=== PATIENT | male | born 1970 | race African-American/Black ===

== ENCOUNTER 2017-04-04 13:05 | Emergency (ER) | payer MEDICAID ==
[2017-04-04 13:28] VITALS: BP 122/67
[2017-04-04] MEDS ORDERED: ONDANSETRON 4 MG TAB.RAPDIS PO ONE (13:56)
[2017-04-04] MEDS ORDERED: HYDROCODONE/ACETAMINOPHEN 5-325 MG TABLET PO ONE (13:56)
[2017-04-04 14:33] LABS: ABSOLUTE EOSINOPHILS # (AUTO) 0.2 10^3/uL (0.0-0.6); ABSOLUTE LYMPHOCYTES (AUTO) 3.1 10^3/uL (0.5-4.7); ABSOLUTE MONOCYTES (AUTO) 0.9 10^3/uL (0.1-1.4); ABSOLUTE NEUT (AUTO) 4.8 10^3/uL (1.7-8.2); BASOPHILS % (AUTO) 0.4 % (0-2); HEMATOCRIT 49.7 % (37.9-51.0); HEMOGLOBIN 17.2 g/dL (13.5-17.0); HGB HCT DIFFERENCE 1.9; LYMPHOCYTES % (AUTO) 34.4 % (13-45); MEAN CORPUSCULAR HEMOGLOBIN 33.6 pg (27.0-33.4); MEAN CORPUSCULAR HGB CONC 34.5 g/dL (32.0-36.0); MEAN CORPUSCULAR VOLUME 97 fl (80-97); MONOCYTES % (AUTO) 9.7 % (3-13); RED BLOOD COUNT 5.11 10^6/uL (4.35-5.55); RED CELL DISTRIBUTION WIDTH 13.6 % (11.5-14.0); SEGMENTED NEUTROPHILS % (AUTO) 53.5 % (42-78); WHITE BLOOD COUNT 9.1 10^3/uL (4.0-10.5)
[2017-04-04 14:35] LABS: APPEARANCE,URINE CLEAR; BILIRUBIN,URINE NEGATIVE (NEGATIVE); GLUCOSE, URINE NEGATIVE (NEGATIVE); KETONES,URINE NEGATIVE (NEGATIVE); LEUKOCYTE ESTERASE,URINE NEGATIVE (NEGATIVE); NITRITE,URINE NEGATIVE (NEGATIVE); PROTEIN,URINE NEGATIVE (NEGATIVE); URINE SPECIFIC GRAVITY 1.015
[2017-04-04 14:50] LABS: ALANINE AMINOTRANSFERASE 34 U/L (21-72); ALBUMIN 4.3 g/dL (3.5-5.0); ALKALINE PHOSPHATASE 53 U/L (38-126); ANION GAP 11 (5-19); ASPARTATE AMINO TRANSFERASE 24 U/L (17-59); BILIRUBIN,DIRECT 0.4 mg/dL (0.0-0.4); BILIRUBIN,TOTAL 0.6 mg/dL (0.2-1.3); BLOOD UREA NITROGEN 19 mg/dL (7-20); CALCIUM 9.6 mg/dL (8.4-10.2); CARBON DIOXIDE 25 mmol/L (22-30); CHLORIDE 107 mmol/L (98-107); CREATININE RESULT 1.07 mg/dL (0.52-1.25); GLUCOSE 87 mg/dL (75-110); POTASSIUM 4.5 mmol/L (3.6-5.0); SODIUM 142.7 mmol/L (137-145); TOTAL PROTEIN 7.1 g/dL (6.3-8.2)
--- NOTE | 2017-04-04 16:05 | ER Document Report ---
ED General - General Chief Complaint: Back Pain Stated Complaint: BACK AND NECK PAIN Time Seen by Provider: 04/04/17 13:56 Mode of Arrival: Ambulatory Information source: Patient Notes: Patient states he was helping his neighbor chop some wood when he had the onset of pain in his lower back. He states it radiates down his left leg. It is constant and severe. It is worse with movement and better with rest. He denies any other significant injuries. He states he has had some chronic pain now for over 1 year but the only new pain is the low back pain that radiates down the left leg. He denies any problems with urination or bowel movements. No change of sensation in the perineal or rectal areas. TRAVEL OUTSIDE OF THE [place] IN LAST 30 DAYS: No - Related Data Allergies/Adverse Reactions: bupropion [From Wellbutrin] Allergy (Mild, Verified 04/04/17 14:03) divalproex sodium [From Depakote] Allergy (Verified 04/04/17 13:28) Past Medical History - General Information source: Patient - Social History Smoking Status: Current Every Day Smoker Chew tobacco use (# tins/day): No Frequency of alcohol use: Occasional Drug Abuse: Marijuana Family History: Reviewed & Not Pertinent Patient has suicidal ideation: No Patient has homicidal ideation: No Renal/ Medical History: Denies: Hx Peritoneal Dialysis Past Surgical History: Reports: Hx Oral Surgery Review of Systems - Review of Systems Constitutional: denies: Chills, Fever Cardiovascular: denies: Chest pain, Palpitations Respiratory: denies: Cough, Short of breath -: Yes All other systems reviewed and negative Physical Exam - Vital signs Vitals: Temp Pulse Resp BP Pulse Ox 98.6 F 77 16 122/67 99 04/04/17 13:25 04/04/17 13:25 04/04/17 13:25 04/04/17 13:25 04/04/17 13:25 Interpretation: Hypertensive - General General appearance: Appears well, Alert In distress: None - HEENT Head: Normocephalic, Atraumatic Eyes: Normal Pupils: PERRL - Respiratory Respiratory status: No respiratory distress Chest status: Nontender Breath sounds: Normal Chest palpation: Normal - Cardiovascular Rhythm: Regular Heart sounds: Normal auscultation Murmur: No - Abdominal Inspection: Normal Distension: No distension Bowel sounds: Normal Tenderness: Nontender Organomegaly: No organomegaly - Back Back: Normal, Tender - Patient is diffusely tender about the lower lumbar spine. Inspection of the area is unremarkable. - Extremities General upper extremity: Normal inspection, Nontender, Normal color, Normal ROM , Normal temperature General lower extremity: Normal inspection, Nontender, Normal color, Normal ROM , Normal temperature, Normal weight bearing. No: Yossi's sign - Neurological Neuro grossly intact: Yes Cognition: Normal Orientation: AAOx4 [place] Coma Scale Eye Opening: Spontaneous [place] Coma Scale Verbal: Oriented P[place] Coma Scale Motor: Obeys Commands Ye[place] Coma Scale Total: 15 Speech: Normal Motor strength normal: LUE, RUE, LLE, RLE Sensory: Normal - Psychological Associated symptoms: Normal affect, Normal mood - Skin Skin Temperature: Warm Skin Moisture: Dry Skin Color: Normal Course - Vital Signs Vital signs: Temp Pulse Resp BP Pulse Ox 98.6 F 77 16 122/67 99 04/04/17 13:25 04/04/17 13:25 04/04/17 13:25 04/04/17 13:25 04/04/17 13:25 - Laboratory Result Diagrams: 04/04/17 14:15 04/04/17 14:15 Laboratory results interpreted by me: 04/04/17 04/04/17 14:15 14:15 Hgb 17.2 H MCH 33.6 H Urine Urobilinogen 2.0 H - Diagnostic Test Radiology reviewed: Image reviewed, Reports reviewed Radiology results interpreted by me: 04/04/17 16:02 Patient has no evidence of fracture dislocation on lumbar spine films. Discharge - Discharge Clinical Impression: Sciatica of left side Condition: Stable Disposition: HOME, SELF-CARE Instructions: Low Back Pain ([facility]) Additional Instructions: Your blood pressure is mildly elevated. Please have this rechecked within 1 week by your doctor. Prescriptions: Hydrocodone/Acetaminophen [Eyota 5-325 mg Tablet] 1 tab PO Q6 PRN #10 tablet PRN Reason: Forms: Elevated Blood Pressure Referrals: WENDY ARMSTRONG MD [COMMUNITY BASED STAFF] - Follow up in 1 week
--- NOTE | 2017-04-04 16:41 | RADIOLOGY REPORT (SQ) ---
EXAM DESCRIPTION: L SPINE 2 VIEWS COMPLETED DATE/TIME: 04/04/2017 2:33 pm REASON FOR STUDY: pain COMPARISON: None. NUMBER OF VIEWS: Two views. TECHNIQUE: AP and lateral radiographic images acquired of the lumbar spine. LIMITATIONS: None. FINDINGS: MINERALIZATION: Normal. SEGMENTATION: Normal. No transitional anatomy. ALIGNMENT: Normal. VERTEBRAE: Maintained height. No fracture or worrisome bone lesion. DISCS: Disc space loss of height at l5-s1 with vacuum phenomenon and vertebral body endplate sclerosi s. POSTERIOR ELEMENTS: Pedicles and facets are intact. No pars defect or posterior arch defects. Facet joint space narrowing and sclerosis at L5-S1. HARDWARE: None in the spine. PARASPINAL SOFT TISSUES: Normal. PELVIS: Intact as visualized. No fractures or worrisome bone lesions. Left SI joint sclerosis. OTHER: No other significant finding. IMPRESSION: Degenerative disc changes and facet arthropathy at L5-S1. No acute fracture or malalignment TECHNICAL DOCUMENTATION: JOB ID: [id number] [employer]- All Rights Reserved
== END 2017-04-04 16:27 | disposition home or self-care (01) ==
LOC: ER 13:05
DX: M54.32 Sciatica, left side (principal); M54.2 Cervicalgia; M79.605 Pain in left leg; F17.200 Nicotine dependence, unspecified, uncomplicated
CPT/HCPCS: 99283; 36415; 85025; 80053; 81001; 72100; S0119

== ENCOUNTER 2018-06-28 06:34 | Day surgery (SDC) | payer MEDICAID ==
--- NOTE | 2018-06-27 13:11 | EKG REPORT ---
SEVERITY:- NORMAL ECG - SINUS RHYTHM ST ELEV, PROBABLE NORMAL EARLY REPOL PATTERN : Confirmed by: Arnulfo Cruz MD 27-Jun-2018 13:10:11
[~2018-06-28 06:34] MED LIST: CEFAZOLIN 1 GM/D5W RTU 1 GM/50 ML RTUPB IV PRN
[2018-06-28] MEDS ORDERED: MIDAZOLAM 2 MG/2 ML INJ ONE (06:42)
[2018-06-28] MEDS ORDERED: LIDOCAINE 2% INJ-PF (20 MG/ML) 10 ML AMPUL ONE (06:42)
[2018-06-28] MEDS ORDERED: FENTANYL CITRATE INJ/PF 100 MCG/2 ML AMPUL ONE (06:42)
[2018-06-28] MEDS ORDERED: KETOROLAC TROMETHAMINE 60 MG/2 ML SDV ONE (06:42)
[2018-06-28] MEDS ORDERED: BUPIVACAINE HCL 0.5 % INJ/PF 30 ML SDV ONE ×2 (06:43→07:21)
[2018-06-28] MEDS ORDERED: PROPOFOL INJ 200 MG/20 ML VIAL IV ONE ×2 (06:43→08:04)
[2018-06-28] MEDS ORDERED: LIDOCAINE 2% INJ (20 MG/ML) 20 ML MDV ONE ×2 (06:43→07:21)
[2018-06-28] MEDS ORDERED: DIPHENHYDRAMINE HCL 50 MG/ML VIAL ONE (06:44)
[2018-06-28] MEDS: BACITRACIN INJ 50,000 UNIT VIAL ONE ×2 (09:06)
[2018-06-28] MEDS: POLYMYXIN B SULFATE INJ 500000 UNIT VIAL ONE ×2 (09:06)
[2018-06-28] MEDS: NORMAL SALINE INJ/PF 0.9% 10 ML SDV ONE ×2 (09:06)
[2018-06-28] MEDS: BUPIVACAINE INJ/PF LIPOSOME/PF 266 MG/20 ML SDV ONE ×2 (09:26)
--- NOTE | 2018-06-28 10:42 | SURGICARE OPERATIVE REPORT E ---
[facility] Operative Report NAME: SAUL HODGES AGE: 48Y DATE OF SURGERY: 06/28/2018 ROOM: PREOPERATIVE DIAGNOSIS: Hallux abductovalgus, right foot. POSTOPERATIVE DIAGNOSIS: Hallux abductovalgus, right foot. SURGICAL PROCEDURE: Correction of bunion by Tu osteotomy with internal fixation, right foot. SURGEON: GREG SANTO DPM SCREEN PRINTING PASTER: Leo Coyle DPM PROCEDURE: Following the induction of IV regional local anesthesia, the right foot and ankle were prepped and draped in the usual sterile manner. A pneumatic tourniquet was placed around the right ankle and inflated to 250 mmHg after exsanguination of the limb via Esmarch bandage. The following surgical procedure was then performed: Correction of bunion by Tu osteotomy with internal fixation, right foot. Attention was directed to the dorsal aspect of the first metatarsophalangeal joint of the right foot where an approximately 6 cm dorsolinear incision was made. The incision was deepened via sharp dissection. All bleeders were clamped and bovied as necessary for the purposes of hemostasis. A capsule incision was made in the same manner as the original skin incision and was made medial to the extensor hallucis longus tendon. The capsule was then reflected medially and laterally from the bone. Attention was directed into the first interspace, where utilizing blunt dissection the transverse adductor tendon was identified and was sharply incised. Attention was directed back to the medial aspect of the first metatarsal head where utilizing a [place] sagittal saw the hypertrophied medial eminence was osteotomized parallel to the long axis of the bone and removed en toto from the wound. Attention was directed to the proximal phalanx where a distal Tu osteotomy was performed with the apex being lateral and the base being medial, and an approximately 2 mm wedge of bone was removed utilizing a [place] sagittal saw. The osteotomy was then tethered closed until it closed down on itself. The osteotomy was then temporarily fixated with a 0.86 guidewire. An x-ray was taken to make sure that the osteotomy was closed, that we had proper correction, and that the guidewire was in a good position. A reamer measure was then threaded down the guidewire and a hole was reamed to accept the head of the screw. It was noted that a 20 x 2.3 mm cannulated screw would be needed. The distal aspect of the osteotomy was then overdrilled utilizing a 1.7 drill bit. The screw was then threaded down the guidewire, and it was tightened down until the osteotomy was closed and stably fixated. The guidewire was then removed. Another x-ray was taken, and it was noted that there was proper correction in the interphalangeal joint of the hallux and that the fifth metatarsophalangeal joint was in an anatomically correct position. Attention was directed to the plantar aspect of the first metatarsal head where it was noted that the fibular sesamoid appeared to be attached to the plantar aspect of the first metatarsal head. This was freed from the attachment using a combination of McGlamry elevator and medializing McGlamry elevator. There was redundant bone on the dorsal aspect of both the first metatarsal head and the base of the proximal phalanx, and this was removed utilizing a rongeur. The medial and dorsal aspects of the first metatarsal head were then rasped smooth utilizing a Stublisher crosscut rasp. Attention was directed to the medial condyle of the base of the proximal phalanx where utilizing a Stublisher sagittal saw this enlarged medial condyle was removed parallel to the long axis of the bone utilizing a Stublisher sagittal saw. This site was also rasped smooth utilizing a Stublisher crosscut rasp. The area was then flushed with copious amounts of antibacterial saline solution. Bone wax was then applied to all of the freshly cut bone surfaces. The capsule was then coaptated and maintained utilizing simple interrupted sutures of 3-0 Vicryl. The extensor hallucis longus tendon was then tacked medially utilizing simple interrupted sutures of 3-0 Vicryl. The subcutaneous tissue was coaptated and maintained utilizing simple interrupted sutures of 4-0 Vicryl. Twenty mL of Exparel were then injected subcutaneously along the length of the incision. The skin was then coaptated and maintained utilizing horizontal mattress sutures of 5-0 nylon. A dry sterile dressing was then applied consisting of Bal silk, 4 x 4s, Conform, Kerlix, and Coban. The pneumatic tourniquet was released. It was noted that all digits were warm and viable, and the patient was transferred to the recovery room. DICTATING PHYSICIAN: GREG SANTO D.P.M. [id number] PHY#: [id number] ID: [id number] JOB#: [id number] ACCT: [id number] cc:GREG SANTO DPM >
--- NOTE | 2018-06-28 11:06 | SURGICARE DISCHARGE SUMMARY E ---
[facility] Discharge Summary NAME: SAUL HODGES AGE: 48Y ADMITTED: 06/28/2018 DISCHARGED: 06/28/2018 PREOPERATIVE DIAGNOSIS: Hallux abductovalgus, right foot. SURGICAL PROCEDURE: Correction bunion by Tu osteotomy with internal fixation right foot. POSTOPERATIVE DIAGNOSIS: Hallux abductovalgus, right foot. SURGEON: Greg Crowley DPM SENIOR CYTOGENETIC TECHNOLOGIST: Leo Coyle DPM HOSPITAL COURSE: The patient was admitted to [facility] with a chief complaint of a painful bunion and big toe. He underwent conservative therapy with no change in his symptoms and the patient desired to have this problem surgically corrected. He underwent the above surgical procedure without any complication and was transferred to the recovery room. He was discharged with a surgical shoe and ice pack. DISCHARGE INSTRUCTIONS: Postoperative instructions included limited weightbearing on the operative foot and postoperative prescriptions for Percocet 5/325 mg, #30, Phenergan 25 mg, #15, and cephalexin 500 mg, #4. He was given a followup appointment in the doctor's office in 1 week, and the patient was discharged from [facility]. DICTATING PHYSICIAN: GREG CROWLEY D.P.M. [id number] PHY#: [id number] ID: [id number] JOB#: [id number] ACCT: [id number] cc:GREG CROWLEY DPM >
--- NOTE | 2018-06-28 13:40 | RADIOLOGY REPORT (SQ) ---
EXAM DESCRIPTION: NO CHG FLUORO; FOOT RIGHT 2 VIEWS COMPLETED DATE/TIME: 06/28/2018 1:23 pm REASON FOR STUDY: BUNIONECTOMY RT FOOT - ASSISTED WITH FLUORO; BUNIONECTOMY RT FT- ASSISTED WITH FLU KYLE M20.11 HALLUX VALGUS (ACQUIRED), RIGHT FOOT COMPARISON: None. FLUOROSCOPY TIME: 10 seconds 2 images saved to PACS. TECHNIQUE: Intra-operative images acquired during surgical procedure to evaluate progress. NUMBER OF IMAGES: 2 LIMITATIONS: None. FINDINGS: 2 images from bunionectomy and orthopedic screw placement in the proximal 1st phalanx. IMPRESSION: IMAGE(S) OBTAINED DURING PROCEDURE. COMMENT: Quality ID [id number]: Final reports for procedures using fluoroscopy that document radiation exp osure indices, or exposure time and number of fluorographic images (if radiation exposure indices are not available) Please consult full operative report of the attending physician for description of the procedure. TECHNICAL DOCUMENTATION: JOB ID: [id number] [employer]- All Rights Reserved Reading location - IP/workstation name: [email or web address]
--- NOTE | 2018-06-28 13:40 | RADIOLOGY REPORT (SQ) ---
EXAM DESCRIPTION: NO CHG FLUORO; FOOT RIGHT 2 VIEWS COMPLETED DATE/TIME: 06/28/2018 1:23 pm REASON FOR STUDY: BUNIONECTOMY RT FOOT - ASSISTED WITH FLUORO; BUNIONECTOMY RT FT- ASSISTED WITH FLU KYLE M20.11 HALLUX VALGUS (ACQUIRED), RIGHT FOOT COMPARISON: None. FLUOROSCOPY TIME: 10 seconds 2 images saved to PACS. TECHNIQUE: Intra-operative images acquired during surgical procedure to evaluate progress. NUMBER OF IMAGES: 2 LIMITATIONS: None. FINDINGS: 2 images from bunionectomy and orthopedic screw placement in the proximal 1st phalanx. IMPRESSION: IMAGE(S) OBTAINED DURING PROCEDURE. COMMENT: Quality ID [id number]: Final reports for procedures using fluoroscopy that document radiation exp osure indices, or exposure time and number of fluorographic images (if radiation exposure indices are not available) Please consult full operative report of the attending physician for description of the procedure. TECHNICAL DOCUMENTATION: JOB ID: [id number]- All Rights Reserved Reading location - IP/workstation name: [email or web address]
== END 2018-06-28 10:53 | disposition home or self-care (01) ==
LOC: SC 06:34
PROVIDERS: ATTEND Podiatrist Foot Surgery
DX: M20.11 Hallux valgus (acquired), right foot (principal); Z79.899 Other long term (current) drug therapy; F17.210 Nicotine dependence, cigarettes, uncomplicated
CPT/HCPCS: 28298; 93005; 93010; 73620; C1769; C1713; J2250; J3490 ×6; J0690; J1200; J1885; J3010; J2704; C9290; 01480

== ENCOUNTER 2019-06-26 10:59 | Emergency (ER) | payer SELFPAY ==
--- NOTE | 2019-06-26 11:38 | EKG REPORT ---
SEVERITY:- NORMAL ECG - SINUS RHYTHM ST ELEV, PROBABLE NORMAL EARLY REPOL PATTERN : Confirmed by: Amirah Garcia 26-Jun-2019 11:37:12
[2019-06-26 11:52] LABS: ABSOLUTE EOSINOPHILS # (AUTO) 0.1 10^3/uL (0.0-0.6); ABSOLUTE LYMPHOCYTES (AUTO) 2.7 10^3/uL (0.5-4.7); ABSOLUTE MONOCYTES (AUTO) 1.2 10^3/uL (0.1-1.4); ABSOLUTE NEUT (AUTO) 2.7 10^3/uL (1.7-8.2); BASOPHILS % (AUTO) 0.4 % (0-2); EOSINOPHILS % (AUTO) 2.1 % (0-6); HEMATOCRIT 48.6 % (37.9-51.0); HEMOGLOBIN 16.7 g/dL (13.5-17.0); LYMPHOCYTES % (AUTO) 39.3 % (13-45); MEAN CORPUSCULAR HEMOGLOBIN 33.6 pg (27.0-33.4); MEAN CORPUSCULAR HGB CONC 34.4 g/dL (32.0-36.0); MEAN CORPUSCULAR VOLUME 97 fl (80-97); MONOCYTES % (AUTO) 17.6 % (3-13); PLATELET COUNT 200 10^3/uL (150-450); RED BLOOD COUNT 4.98 10^6/uL (4.35-5.55); RED CELL DISTRIBUTION WIDTH 13.7 % (11.5-14.0); SEGMENTED NEUTROPHILS % (AUTO) 40.6 % (42-78); TOTAL CELLS COUNTED % (AUTO) 100 %; WHITE BLOOD COUNT 6.8 10^3/uL (4.0-10.5)
[2019-06-26 12:10] LABS: ALBUMIN 4.4 g/dL (3.5-5.0); ALKALINE PHOSPHATASE 56 U/L (38-126); ANION GAP 5 (5-19); ASPARTATE AMINO TRANSFERASE 67 U/L (17-59); BILIRUBIN,TOTAL 1.3 mg/dL (0.2-1.3); BLOOD UREA NITROGEN 14 mg/dL (7-20); CALCIUM 9.5 mg/dL (8.4-10.2); CARBON DIOXIDE 28 mmol/L (22-30); CHLORIDE 105 mmol/L (98-107); CREATINE KINASE 1493 U/L (55-170); GLUCOSE 94 mg/dL (75-110); POTASSIUM 4.6 mmol/L (3.6-5.0); TOTAL PROTEIN 7.5 g/dL (6.3-8.2)
--- NOTE | 2019-06-26 12:13 | RADIOLOGY REPORT (SQ) ---
EXAM DESCRIPTION: CHEST SINGLE VIEW COMPLETED DATE/TIME: 06/26/2019 11:45 am REASON FOR STUDY: bed 11 cp COMPARISON: None. EXAM PARAMETERS: NUMBER OF VIEWS: One view. TECHNIQUE: Single frontal radiographic view of the chest acquired. RADIATION DOSE: NA LIMITATIONS: None. FINDINGS: LUNGS AND PLEURA: No opacities, masses or pneumothorax. No pleural effusion. MEDIASTINUM AND HILAR STRUCTURES: No masses. Contour normal. HEART AND VASCULAR STRUCTURES: Heart normal in size. Normal vasculature. BONES: No acute findings. HARDWARE: None in the chest. OTHER: No other significant finding. IMPRESSION: NO ACUTE RADIOGRAPHIC FINDING IN THE CHEST. TECHNICAL DOCUMENTATION: JOB ID: [id number] [employer]- All Rights Reserved Reading location - IP/workstation name: [email or web address]
[2019-06-26 12:25] LABS: CREATINE KINASE MB 5.34 ng/mL (<4.55)
[2019-06-26 12:27] LABS: TROPONIN I < 0.012 ng/mL
--- NOTE | 2019-06-26 13:25 | ER Document Report ---
ED Cardiac - General Chief Complaint: Chest Pain Stated Complaint: CHEST PAIN/SHORTNESS OF BREATH/BLOOD PRESSURE Time Seen by Provider: 06/26/19 12:30 Mode of Arrival: Ambulatory Information source: Patient TRAVEL OUTSIDE OF THE [place] IN LAST 30 DAYS: No - HPI Notes: Patient presents complaint of chest pain. He states he has had this chest pain for approximately 5 days. He states it is been intermittent. Nothing makes it better or worse. It does radiate across his chest. It is a sharp and pressure sensation. He also states he has had nausea but no vomiting. He has had some shortness of breath and sweating as well. He states he has never had any previous coronary artery disease. He did have a negative stress test a little over 1 year ago he states. 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 He also states he has some chronic pericarditis. He states that he has had some generalized malaise and weakness as well over the last week. - Related Data Allergies/Adverse Reactions: bupropion [From Wellbutrin] Allergy (Severe, Verified 06/26/18 12:20) Hallucinations divalproex sodium [From Depakote] Allergy (Severe, Verified 06/26/18 12:20) rhabdomyolsis bee stings Allergy (Severe, Uncoded 06/26/18 12:20) Anaphylaxis Past Medical History - General Information source: Patient - Social History Smoking Status: Current Every Day Smoker Frequency of alcohol use: None Drug Abuse: None Family History: Reviewed & Not Pertinent Patient has suicidal ideation: No Patient has homicidal ideation: No - Past Medical History Cardiac Medical History: Denies: Hx Heart Attack, Hx Hypertension Pulmonary Medical History: Reports: Hx Asthma Neurological Medical History: Denies: Hx Cerebrovascular Accident, Hx Seizures Renal/ Medical History: Denies: Hx Peritoneal Dialysis GI Medical History: Reports: Hx Ulcer. Denies: Hx Hepatitis, Hx Hiatal Hernia Infectious Medical History: Denies: Hx Hepatitis Past Surgical History: Reports: Hx Oral Surgery. Denies: Hx Open Heart Surgery, Hx Pacemaker Review of Systems - Review of Systems Constitutional: Malaise, Weakness. denies: Chills, Fever Cardiovascular: Chest pain. denies: Palpitations Respiratory: Cough, Short of breath -: Yes All other systems reviewed and negative Physical Exam - Vital signs Vitals: Temp Pulse Resp BP Pulse Ox 98.4 F 66 18 141/71 H 100 06/26/19 11:26 06/26/19 11:06/26/19 11:06/26/19 11:06/26/19 11:26 Interpretation: Normal - General General appearance: Appears well, Alert - HEENT Head: Normocephalic, Atraumatic Eyes: Normal Pupils: PERRL - Respiratory Respiratory status: No respiratory distress Chest status: Nontender Breath sounds: Normal Chest palpation: Normal - Cardiovascular Rhythm: Regular Heart sounds: Normal auscultation Murmur: No - Abdominal Inspection: Normal Distension: No distension Bowel sounds: Normal Tenderness: Nontender Organomegaly: No organomegaly - Back Back: Normal, Nontender - Extremities General upper extremity: Normal inspection, Nontender, Normal color, Normal ROM, Normal temperature General lower extremity: Normal inspection, Nontender, Normal color, Normal ROM, Normal temperature, Normal weight bearing. No: Yossi's sign - Neurological Neuro grossly intact: Yes Cognition: Normal Orientation: AAOx4 [place] Coma Scale Eye Opening: Spontaneous [place] Coma Scale Verbal: Oriented Pillo Coma Scale Motor: Obeys Commands Pillo Coma Scale Total: 15 Speech: Normal Motor strength normal: LUE, RUE, LLE, RLE Sensory: Normal - Psychological Associated symptoms: Normal affect, Normal mood - Skin Skin Temperature: Warm Skin Moisture: Dry Skin Color: Normal Course - Re-evaluation Re-evalutation: 06/26/19 14:08 Patient has had weakness for about 1 week. He also complains that he had some chest pain with some shortness of breath for the last 4 to 5 days. His work appears unremarkable. There is no changes of enzymes. No changes of serial EKGs. The rest of his evaluation is also unremarkable. He does appear to have some early re-pole versus chronic pericarditis but no acute changes. I will discharge patient home with pain medicine nausea medicine and have him follow-up with primary care physician. I also discussed the case with the table tender, Dr. Mohr. He will see the patient in the office as well. - Vital Signs Vital signs: Temp Pulse Resp BP Pulse Ox 98.4 F 66 18 141/71 H 98 06/26/19 11:26 06/26/19 11:26 06/26/19 11:06/26/19 11:06/26/19 12:44 - Laboratory Result Diagrams: 06/26/19 11:35 06/26/19 11:35 Laboratory results interpreted by me: 06/26/19 06/26/19 06/26/19 11:35 11:35 11:35 MCH 33.6 H Fleming % (Auto) 17.6 H Seg Neutrophils % 40.6 L AST 67 H Creatine Kinase 1493 H CK-MB (CK-2) 5.34 H - Diagnostic Test Radiology reviewed: Image reviewed, Reports reviewed - EKG Interpretation by Me EKG shows normal: Sinus rhythm Rate: Normal - 73 Rhythm: NSR Eldora/QRS: No: Right axis deviation, Left axis deviation When compared to previous EKG there are: No significant change Additional EKG results interpreted by me: 06/26/19 13:22 Patient had a repeat EKG done at approximately 1237. Repeat EKG shows a sinus rhythm. Rate is 74. Eldora is normal. Patient has diffuse ST elevation consistent with early re-pole versus Ambreen pericarditis. It is not significantly changed from the EKG that was done at 11:07 AM. Discharge - Discharge Clinical Impression: Chest pain Qualifiers: Chest pain type: unspecified Qualified Code(s): R07.9 - Chest pain, unspecified Condition: Stable Disposition: HOME, SELF-CARE Instructions: Oral Narcotic Medication ([facility]), Chest Pain of Unclear Cause ([facility]) Additional Instructions: Please follow-up with your primary care physician as soon as possible Prescriptions: Hydrocodone/Acetaminophen [Chaffee 5-325 mg Tablet] 1 tab PO Q6 PRN 3 Days #12 tablet PRN Reason: Ondansetron [Zofran Odt 4 mg Tablet] 1 tab PO Q6 5 Days #10 tab.rapdis Referrals: [facility] [Provider Group] - Follow up in 3-5 days AKOSUA MOHR MD [ACTIVE STAFF] - Follow up in 1 week
[2019-06-26 15:04] VITALS: BP 125/77
--- NOTE | 2019-06-26 18:48 | EKG REPORT ---
SEVERITY:- NORMAL ECG - SINUS RHYTHM ST ELEV, PROBABLE NORMAL EARLY REPOL PATTERN : Confirmed by: Amirah Garcia 26-Jun-2019 18:47:48
== END 2019-06-26 15:10 | disposition home or self-care (01) ==
LOC: ER 10:59
DX: R07.9 Chest pain, unspecified (principal); R06.02 Shortness of breath; F17.200 Nicotine dependence, unspecified, uncomplicated
CPT/HCPCS: 36415; 71045; 80053; 82550; 82553; 84484; 85025; 93005; 93010; 99285

== ENCOUNTER 2019-08-05 14:57 | Emergency (ER) | payer SELFPAY ==
[2019-08-05] MEDS ORDERED: NORMAL SALINE 1000 ML 1,000 ML IV ONE ×3 (15:10→16:58)
[2019-08-05] MEDS ORDERED: ONDANSETRON HCL INJ/PF 4 MG/2 ML SDV IV ONE (15:10)
--- NOTE | 2019-08-05 15:17 | ER Document Report ---
ED Medical Screen (RME) - General Chief Complaint: Pain All Over Stated Complaint: BODY CRAMPS Time Seen by Provider: 08/05/19 15:05 TRAVEL OUTSIDE OF THE [place] IN LAST 30 DAYS: No - HPI Notes: 08/05/19 15:11 49-year-old male presents emergency room for an "exacerbation of my rhabdomyolysis". Patient states he has body pain all over. He suffers from dehydration and body aches and has intermittent vomiting when he has his exacerbation of his rhabdomyolysis. Denies any chest pain shortness of breath, abdominal pain, fever chills. Patient states he does have flareups of his rhabdomyolysis. was dx in 2002 per patient. I have greeted and performed a rapid initial assessment of this patient. A comprehensive ED assessment and evaluation of the patient, analysis of test results and completion of the medical decision making process will be conducted by additional ED providers. PHYSICAL EXAMINATION: GENERAL: Well-appearing, well-nourished and moderate distress HEAD: Atraumatic, normocephalic. CV: tachycardia LUNGS: No respiratory distress - Related Data Allergies/Adverse Reactions: bupropion [From Wellbutrin] Allergy (Severe, Verified 08/05/19 15:11) Hallucinations divalproex sodium [From Depakote] Allergy (Severe, Verified 08/05/19 15:11) rhabdomyolsis bee stings Allergy (Severe, Uncoded 08/05/19 15:11) Anaphylaxis Past Medical History - Past Medical History Cardiac Medical History: Denies: Hx Heart Attack, Hx Hypertension Pulmonary Medical History: Reports: Hx Asthma Neurological Medical History: Denies: Hx Cerebrovascular Accident, Hx Seizures Renal/ Medical History: Denies: Hx Peritoneal Dialysis GI Medical History: Reports: Hx Ulcer. Denies: Hx Hepatitis, Hx Hiatal Hernia Infectious Medical History: Denies: Hx Hepatitis Past Surgical History: Reports: Hx Oral Surgery. Denies: Hx Open Heart Surgery, Hx Pacemaker Physical Exam - Vital signs Vitals: Temp Pulse Resp BP Pulse Ox 98.0 F 116 H 22 H 106/68 99 08/05/19 15:01 08/05/19 15:01 08/05/19 15:01 08/05/19 15:01 08/05/19 15:01 Course - Vital Signs Vital signs: Temp Pulse Resp BP Pulse Ox 98.0 F 116 H 22 H 106/68 99 08/05/19 15:01 08/05/19 15:01 08/05/19 15:01 08/05/19 15:01 08/05/19 15:01
[2019-08-05 15:55] LABS: ABSOLUTE BASOPHILS # (AUTO) 0.1 10^3/uL (0.0-0.2); ABSOLUTE LYMPHOCYTES (AUTO) 2.5 10^3/uL (0.5-4.7); ABSOLUTE MONOCYTES (AUTO) 1.3 10^3/uL (0.1-1.4); ABSOLUTE NEUT (AUTO) 9.1 10^3/uL (1.7-8.2); BASOPHILS % (AUTO) 0.5 % (0-2); EOSINOPHILS % (AUTO) 0.3 % (0-6); HEMATOCRIT 56.4 % (37.9-51.0); LYMPHOCYTES % (AUTO) 19.5 % (13-45); MEAN CORPUSCULAR HEMOGLOBIN 34.3 pg (27.0-33.4); MEAN CORPUSCULAR HGB CONC 35.4 g/dL (32.0-36.0); MEAN CORPUSCULAR VOLUME 97 fl (80-97); MONOCYTES % (AUTO) 9.8 % (3-13); PLATELET COUNT 253 10^3/uL (150-450); RED BLOOD COUNT 5.82 10^6/uL (4.35-5.55); RED CELL DISTRIBUTION WIDTH 13.8 % (11.5-14.0); SEGMENTED NEUTROPHILS % (AUTO) 69.9 % (42-78); TOTAL CELLS COUNTED % (AUTO) 100 %
[2019-08-05 15:59] LABS: ALBUMIN 5.8 g/dL (3.5-5.0); ALKALINE PHOSPHATASE 91 U/L (38-126); ANION GAP 15 (5-19); ASPARTATE AMINO TRANSFERASE 39 U/L (17-59); BILIRUBIN,DIRECT 0.3 mg/dL (0.0-0.4); BILIRUBIN,TOTAL 1.1 mg/dL (0.2-1.3); BLOOD UREA NITROGEN 22 mg/dL (7-20); CALCIUM 11.2 mg/dL (8.4-10.2); CARBON DIOXIDE 23 mmol/L (22-30); CHLORIDE 103 mmol/L (98-107); CREATINE KINASE 550 U/L (55-170); GLUCOSE 117 mg/dL (75-110); POTASSIUM 4.4 mmol/L (3.6-5.0); TOTAL PROTEIN 9.7 g/dL (6.3-8.2)
--- NOTE | 2019-08-05 17:08 | ER Document Report ---
ED General - General Chief Complaint: Weakness Stated Complaint: BODY CRAMPS Time Seen by Provider: 08/05/19 15:05 TRAVEL OUTSIDE OF THE [place] IN LAST 30 DAYS: No - HPI Notes: Patient is a 49-year-old male who presents to the emergency department for evaluation of nausea, vomiting, dehydration, and "rhabdomyolysis." He states he is had this in the past. He states he has had a feeling of dehydration coming on, he started vomiting over the last 24 hours. His emesis has been nonbloody, nonbilious. He has a soreness in his abdomen that is exacerbated by vomiting. No fevers or chills. He is still urinating, although he notes it has been decreased. - Related Data Allergies/Adverse Reactions: bupropion [From Wellbutrin] Allergy (Severe, Verified 08/05/19 15:11) Hallucinations divalproex sodium [From Depakote] Allergy (Severe, Verified 08/05/19 15:11) rhabdomyolsis bee stings Allergy (Severe, Uncoded 08/05/19 15:11) Anaphylaxis Home Medications: Seroquel, Xanax Past Medical History - General Information source: Patient - Social History Smoking Status: Current Every Day Smoker Chew tobacco use (# tins/day): No Frequency of alcohol use: Social Drug Abuse: Marijuana Family History: Reviewed & Not Pertinent Patient has suicidal ideation: No Patient has homicidal ideation: No - Past Medical History Cardiac Medical History: Denies: Hx Heart Attack, Hx Hypertension Pulmonary Medical History: Reports: Hx Asthma Neurological Medical History: Denies: Hx Cerebrovascular Accident, Hx Seizures Renal/ Medical History: Denies: Hx Peritoneal Dialysis GI Medical History: Reports: Hx Ulcer. Denies: Hx Hepatitis, Hx Hiatal Hernia Psychiatric Medical History: Reports: Hx Anxiety Infectious Medical History: Denies: Hx Hepatitis Past Surgical History: Reports: Hx Oral Surgery. Denies: Hx Open Heart Surgery, Hx Pacemaker Review of Systems - Review of Systems Constitutional: See HPI Gastrointestinal: See HPI Genitourinary: See HPI -: Yes All other systems reviewed and negative Physical Exam - Vital signs Vitals: Temp Pulse Resp BP Pulse Ox 98.0 F 116 H 22 H 106/68 99 08/05/19 15:01 08/05/19 15:01 08/05/19 15:01 08/05/19 15:01 08/05/19 15:01 - Notes Notes: Vital signs reviewed, please refer to chart. Head is normocephalic, atraumatic. Pupils equal round, reactive to light. Neck is supple without meningismus. Heart is regular rate and rhythm. Lungs are clear to auscultation bilaterally. Abdomen is soft, nontender, normoactive bowel sounds throughout. Extremities without cyanosis, clubbing. Posterior calves are nontender. Peripheral pulses are equal. Skin is warm and dry. Patient is awake, alert, neurological exam is nonfocal. Course - Re-evaluation Re-evalutation: 08/05/19 17:08 Patient presents to the emergency department for evaluation. He had laboratory investigations and IV fluids, as well as Zofran, ordered through triage. His initial labs revealed a hemoglobin of 20 and creatinine of 2.4. Patient was already feeling markedly improved after Zofran and 1 L of fluids. Patient was already anxious to be discharged. I explained to him I would feel more comfortable giving him more fluids. 2 more liters of normal saline were ordered. The patient is being [facility] to make sure he can tolerate p.o. We will continue to monitor. 08/05/19 18:21 Patient is given a total of 3 L. He was told that his renal function was abnormal, this will need to be rechecked. He is able to tolerate p.o. fluids here. We will send him with a small amount of Zofran and instructions to stay well-hydrated. He voiced understanding and will follow-up with primary care next week. He is to return to the ED with worsening. - Vital Signs Vital signs: Temp Pulse Resp BP Pulse Ox 98.0 F 116 H 22 H 106/68 99 08/05/19 15:01 08/05/19 15:01 08/05/19 15:01 08/05/19 15:01 08/05/19 15:01 - Laboratory Result Diagrams: 08/05/19 15:30 08/05/19 15:30 Laboratory results interpreted by me: 08/05/19 08/05/19 08/05/19 15:30 15:30 17:50 WBC 13.0 H RBC 5.82 H Hgb 20.0 H* Hct 56.4 H MCH 34.3 H Absolute Neuts (auto) 9.1 H BUN 22 H Creatinine 2.40 H Est GFR ( Amer) 35 L Est GFR (MDRD) Non-Af 29 L Glucose 117 H Calcium 11.2 H Creatine Kinase 550 H Total Protein 9.7 H Albumin 5.8 H Urine Protein 30 H Urine Ketones 20 H Urine Blood SMALL H Ur Leukocyte Esterase SMALL H Discharge - Discharge Clinical Impression: Dehydration, Rhabdomyolysis, Abnormal renal function Condition: Stable Disposition: HOME, SELF-CARE Instructions: Nausea or Vomiting, Nonspecific ([facility]), Dehydration ([facility]), Kidney Function Abnormality ([facility]) Additional Instructions: Stay hydrated with small, frequent sips of fluids. Your labs today showed significant dehydration and abnormal kidney function. This is likely only because of dehydration, but it is very important that you have this rechecked. Zofran as needed for severe nausea. Follow-up with primary care next week, return to the emergency department for worsening or new concerning symptoms of any sort.
[2019-08-05 18:19] LABS: APPEARANCE,URINE SLIGHTLY-CLOUDY; BILIRUBIN,URINE NEGATIVE (NEGATIVE); COLOR,URINE AMBER; GLUCOSE, URINE NEGATIVE (NEGATIVE); KETONES,URINE 20 mg/dL (NEGATIVE); LEUKOCYTE ESTERASE,URINE SMALL (NEGATIVE); NITRITE,URINE NEGATIVE (NEGATIVE); PROTEIN,URINE 30 mg/dL (NEGATIVE); UROBILINOGEN,URINE NEGATIVE mg/dL (<2.0)
[2019-08-05] MEDS ORDERED: ONDANSETRON ODT 4 MG TAB (6 TAB/ER DISP) PO PRN (18:22)
--- NOTE | 2019-08-05 18:55 | EKG REPORT ---
SEVERITY:- ABNORMAL ECG - SINUS RHYTHM RIGHT ATRIAL ABNORMALITY ST ELEV, PROBABLE NORMAL EARLY REPOL PATTERN : Confirmed by: Arnulfo Cruz MD 05-Aug-2019 18:54:49
[2019-08-05 18:57] VITALS: BP 144/71
== END 2019-08-05 18:56 | disposition home or self-care (01) ==
LOC: ER 14:57
DX: E86.0 Dehydration (principal); M62.82 Rhabdomyolysis; R11.2 Nausea with vomiting, unspecified; N28.9 Disorder of kidney and ureter, unspecified; F17.200 Nicotine dependence, unspecified, uncomplicated; F41.9 Anxiety disorder, unspecified; F12.10 Cannabis abuse, uncomplicated; Z88.8 Allergy status to other drugs, medicaments and biological substances; Z87.892 Personal history of anaphylaxis; Z91.030 Bee allergy status; Z79.899 Other long term (current) drug therapy
CPT/HCPCS: 93005; 99284; 96361; 96374; 36415; 82962; 82550; 85025; 80053; 81001; 93010; J2405; J7030